=== PATIENT | male | born 1950 | race Caucasian/White ===

== ENCOUNTER 2018-07-23 22:29 | Inpatient (IN) | payer BC, MEDICARE ==
[~2018-07-23] VITALS: Ht 188 cm; Wt 144.0 kg
[2018-07-23] MEDS ORDERED: SODIUM CHLORIDE 0.9% 1,000 ML IV ONE (23:02)
[2018-07-24 00:05] LABS: Basophils # (auto) 0.1 uL; Basophils % (auto) 0.8 % (0.0-2.0); Eosinophils # (auto) 0.2 uL; Eosinophils % (auto) 1.1 % (0.0-7.0); Hemoglobin 16.5 g/dL (13.5-17.5); Lymphocytes # (auto) 2.1 uL; Lymphocytes % (auto) 11.8 % (10.0-50.0); Mean Corpuscular Hemoglobin 29.5 pg (28.0-32.0); Mean Corpuscular Hgb Conc. 32.3 g/dL (32.0-36.0); Mean Corpuscular Volume 91.4 fL (80.0-100.0); Monocytes # (auto) 0.8 uL; Monocytes % (auto) 4.7 % (0.0-12.0); Neutrophils # (auto) 14.4 uL; Neutrophils % (auto) 81.6 % (37.0-80.0); Nucleated Red Blood Cells % 0.1 %; Platelet Count (auto) 277 10^3/uL (140-450); Red Blood Cells 5.58 10^6/uL (4.5-5.90); White Blood Cell 17.6 10^3/uL (4.4-10.8)
[2018-07-24 00:17] LABS: Amylase 16 U/L (25-115); Lipase 57 U/L (73-393)
[2018-07-24 00:22] LABS: Alanine Aminotransferase 46 U/L (16-61); Albumin 3.9 g/dL (3.4-5.0); Anion Gap 12 (5-15); Aspartate Aminotransferase 76 U/L (15-37); BUN/Creatinine Ratio 17.9; Blood Urea Nitrogen 20 mg/dL (7-18); Calcium 9.3 mg/dL (8.5-10.1); Carbon Dioxide 23 mmol/L (21-32); Chloride 100 mmol/L (98-107); GFR African American 84 mL/min; GFR Non-African American 70 mL/min; Glucose 127 mg/dL (74-106); Magnesium 2.2 mg/dL (1.6-2.6); Potassium 4.4 mmol/L (3.5-5.1); Sodium 135 mmol/L (136-145)
[2018-07-24 00:24] LABS: Alkaline Phosphatase 70 U/L (45-117); Bilirubin, Total 0.8 mg/dL (0.2-1.0); Total Protein 8.1 g/dL (6.4-8.2)
[2018-07-24 00:33] LABS: INR 2.42 (0.9-1.15); Partial Thromboplastin Time 42.5 sec (23.78-33.04); Prothrombin Time 24.6 sec (9.27-12.13)
[2018-07-24] MEDS ORDERED: LEVOFLOXACIN 750MG 150 ML IV ONE (03:30)
[2018-07-24 04:22] LABS: Urine Bacteria FEW /hpf (None Seen); Urine Blood Negative /uL (Negative); Urine Hyaline Cast FEW /lpf (0 - 2); Urine Mucus FEW (None Seen); Urine Specific Gravity 1.015 (1.001-1.035); Urine WBC 1 /hpf (0 - 3)
[2018-07-24] MEDS ORDERED: HYDROcodone-ACET 5/325MG TAB PO PRN (05:30)
[2018-07-24] MEDS ORDERED: ACETAMINOPHEN 325 MG TAB PO PRN (05:30)
[2018-07-24] MEDS ORDERED: TEMAZEPAM 15 MG CAP PO PRN (05:30)
[2018-07-24] MEDS ORDERED: ONDANSETRON HCL 4 MG/2 ML VIAL IV PRN (05:30)
[2018-07-24] MEDS ORDERED: LORazepam 0.5 MG TAB PO PRN (05:45)
[2018-07-24 09:32] VITALS: BP 122/74
[2018-07-24] MEDS: METOPROLOL TARTRATE 25 MG TAB PO SCH ×2 (09:37→22:02)
[2018-07-24] MEDS: FAMOTIDINE 20 MG TAB PO SCH ×2 (09:37→22:01)
[2018-07-24] MEDS ORDERED: LISINOPRIL 20 MG TAB PO SCH (10:00)
[2018-07-24] MEDS ORDERED: LEVOFLOXACIN 750MG 150 ML IV SCH (10:00)
[2018-07-24 10:45] VITALS: BP 122/74
[2018-07-24 13:00] VITALS: BP 109/51
[2018-07-24 16:54] VITALS: BP 120/72
[2018-07-24] MEDS ORDERED: WARFARIN SODIUM 2.5 MG TAB PO ONE (17:00)
[2018-07-24] MEDS ORDERED: QUET300T23 PO (17:34)
[2018-07-24] MEDS ORDERED: IMI25T PO (17:34)
[2018-07-24] MEDS ORDERED: LISI40TA PO (17:34)
[2018-07-24] MEDS ORDERED: METF-371 PO (17:34)
[2018-07-24] MEDS ORDERED: WARF6TAB21 PO (17:34)
[2018-07-24] MEDS ORDERED: ASP81EC PO (17:34)
[2018-07-24] MEDS ORDERED: METO-169 PO (17:34)
[2018-07-24] MEDS ORDERED: ALPR-229 PO (17:34)
[2018-07-24 22:00] VITALS: BP 127/71
[2018-07-24] MEDS ORDERED: QUEtiapine FUMARATE 100 MG TAB PO SCH (22:00)
[2018-07-24] MEDS ORDERED: NITROGLYCERIN 0.4 MG SL TAB SL PRN (23:45)
== END 2018-07-25 01:02 | disposition short-term general hospital (02) | DRG 194 ==
LOC: ER 22:29 → EDBD 22:29 → TELE 07-24 05:37 → TELE-CENTR 07-24 08:49
PROVIDERS: ADMIT Nurse Practitioner; ATTEND Internal Medicine Geriatric Medicine
DX: J18.9 Pneumonia, unspecified organism (principal); D68.9 Coagulation defect, unspecified; Z68.41 Body mass index [BMI] 40.0-44.9, adult; E66.01 Morbid (severe) obesity due to excess calories; E11.65 Type 2 diabetes mellitus with hyperglycemia; E86.0 Dehydration; I11.9 Hypertensive heart disease without heart failure; K57.30 Diverticulosis of large intestine without perforation or abscess without bleeding; N40.0 Benign prostatic hyperplasia without lower urinary tract symptoms; Z95.2 Presence of prosthetic heart valve
CPT/HCPCS: 36415; 71045; 74176; 80053; 81001; 82150; 82962; 83605; 83690; 83735; 83880; 84154; 84484; 85025; 85379; 85610; 85730; 87040; 96365; 96366; G0378; J1956

== ENCOUNTER 2021-12-05 13:51 | Emergency (ER) | payer BC, MEDICARE ==
[~2021-12-05] VITALS: Ht 182.9 cm; Wt 136.1 kg
[~2021-12-05 13:51] MED LIST: ALPR2TAB6 PO; ASPI-394 PO; IMIP25TA2 PO; LISI40TA11 PO; METF-371 PO; METO-289 PO; QUET300T24 PO; WARF6TAB21 PO
[2021-12-05] MEDS ORDERED: SODIUM CHLORIDE 0.9% 1,000 ML IV ONE (14:45)
[2021-12-05 15:01] LABS: Basophils # (auto) 0 10 ^3/uL (0-0.2); Basophils % (auto) 0.4 % (0.0-2.0); Eosinophils # (auto) 0.2 10 ^3/uL (0-0.8); Eosinophils % (auto) 2.6 % (0.0-7.0); Hematocrit 41.2 % (41.0-53.0); Lymphocytes # (auto) 2.8 10 ^3/uL (0.4-5.4); Lymphocytes % (auto) 33.6 % (10.0-50.0); Mean Corpuscular Hemoglobin 32.1 pg (28.0-32.0); Mean Corpuscular Hgb Conc. 33.9 g/dL (32.0-36.0); Mean Corpuscular Volume 94.6 fL (80.0-100.0); Monocytes # (auto) 0.8 10 ^3/uL (0-1.3); Monocytes % (auto) 9.1 % (0.0-12.0); Neutrophils # (auto) 4.5 10 ^3/uL (1.6-8.6); Neutrophils % (auto) 54.3 % (37.0-80.0); Nucleated Red Blood Cells % 0.3 %; Red Blood Cells 4.36 10^6/uL (4.5-5.90); Red Cell Distribution Width 14.5 % (11.8-14.3); White Blood Cell 8.2 10^3/uL (4.4-10.8)
[2021-12-05 15:11] LABS: Albumin 2.5 g/dL (3.4-5.0); BUN/Creatinine Ratio 21.3; Calcium 8.9 mg/dL (8.5-10.1); Potassium 4.6 mmol/L (3.5-5.1)
[2021-12-05 15:23] LABS: Bilirubin, Total 0.4 mg/dL (0.2-1.0)
[2021-12-05 16:05] LABS: Urine Bacteria NONE SEEN /hpf (None Seen); Urine Blood 2+ /uL (Negative); Urine WBC 1 /hpf (0 - 3)
[2021-12-05] MEDS ORDERED: cefTRIAXone 1GM/50ML D5W 50 ML IV ONE (16:45)
[2021-12-05 18:10] VITALS: BP 124/55
== END 2021-12-05 22:18 | disposition home or self-care (01) ==
LOC: ER 13:51 → EDBD 13:51 → ER 21:16
DX: E86.0 Dehydration (principal); E46 Unspecified protein-calorie malnutrition; G45.9 Transient cerebral ischemic attack, unspecified; R53.1 Weakness; E11.9 Type 2 diabetes mellitus without complications; I10 Essential (primary) hypertension
CPT/HCPCS: 36415; 70450; 71045; 80053; 81001; 84484; 85025; 96361; 96365; 99285; J0696